=== PATIENT | male | born 2000 | race Caucasian/White ===

== ENCOUNTER 2023-01-13 17:42 | Emergency (ER) | payer MEDICAID, SELFPAY ==
[2023-01-13 17:52] VITALS: BP 130/91; PULSE 86; RESP 18; TEMP 36.7; O2SAT 97; BMI 44.6
[2023-01-13] MEDS: tetracaine 0.5% Op Soln 4 mL Btl 1 DROP EYE-RIGHT (20:50)
[2023-01-13] MEDS: fluorescein 1 mg Strip EYE-RIGHT (20:50)
[2023-01-13 22:41] VITALS: BP 130/91; PULSE 86; RESP 18; TEMP 36.7; O2SAT 97
--- NOTE | 2023-01-14 03:00 | W.ED.EYEPROB ---
HPI - Eye Problem General: Chief complaint: Eye Problems Stated complaint: hurt right eye Time Seen by Provider: 01/13/23 20:45 Source: patient Mode of arrival: ambulatory Limitations: no limitations History of Present Illness: Patient presents emergency department today accompanied by his mother for evaluation treatment of redness and irritation of the right eye. Patient denies any known trauma or injury but does indicate that he has issues with sleeping at night and may have accidentally rubbed his eye. He denies knowingly having gotten a foreign body in the eye. He denies upper respiratory symptoms such as significant nasal congestion, sore throat, headache, or cough. He denies photophobia. Patient wears corrective glasses but does not wear contacts. He denies any significant matting or draining from the eye. Review of Systems General: Reports: 10 or more systems reviewed and unremarkable except in HPI and below Physical Exam Const: COMMON NORMALS: no acute distress, patient oriented x3 and alert HENMT: COMMON NORMALS: normocephalic, hearing grossly normal bilaterally, EAC's normal, TM's normal bilaterally, Normal external nose present and Normal nasal mucous membranes and turbinates present HEAD & SCALP: normocephalic NOSE: Normal external nose present and Normal nasal mucous membranes and turbinates present EXTERNAL AUDITORY CANAL: EAC's normal TYMPANIC MEMBRANE: TM's normal bilaterally Eye: COMMON NORMALS: Equal, round and reactive pupils present and EOMs intact bilaterally PUPIL: Yes Equal, round and reactive pupils present OTHER: Patient has moderate injections to the right conjunctive a. No signs of significant matting to the lashes. Patient's lids were everted and no signs of any internal styes or hordeolum is appreciated. No signs of obvious foreign body. Patient received a fluorescein examination by Hawkins lamp which showed no signs of dye uptake indicating corneal abrasion. Neck/C-Spine: COMMON NORMALS: no JVD Lymph: LYMPHATIC: no lymphadenopathy noted Resp: COMMON NORMALS: normal respiratory effort, No retractions and No use of accessory muscles Cardio: COMMON NORMALS: no JVD and regular rate RATE: regular rate : COMMON NORMALS: Yes no CVA tenderness BLADDER/KIDNEY EXAM: Yes no CVA tenderness Back/Pelvis: COMMON NORMALS: no CVA tenderness, thoracic and lumbar spine normal to inspection and thoraco-lumbar ROM normal Extremity: COMMON NORMALS: normal to inspection, full ROM and no pedal edema Neuro: COMMON NORMALS: patient oriented x3 SENSORIUM/ORIENTATION: Yes alert Skin: COMMON NORMALS: no rashes or lesions noted and turgor normal GENERAL SKIN EXAM: no rashes or lesions noted and turgor normal Course Vital Signs: Vital signs: Vital Signs Temperature 98.1 F 01/13/23 22:41 Pulse Rate 86 01/13/23 22:41 Respiratory Rate 18 01/13/23 22:41 Blood Pressure 130/91 01/13/23 22:41 Pulse Oximetry 97 01/13/23 22:41 Oxygen Delivery Me thod Room Air 01/13/23 17:52 MDM - Eye Problem Medical Decision Making Examination today showed no signs of acute styes or hordeolum's. No obvious foreign bodies and no signs of stain uptake on Hawkins lamp exam. At this time, as I appreciate no signs of trauma, we will treat for infection with ciprofloxacin. Given the time of night I did request the medication be administered from the pharmacy however, after quite a delay, they indicated they were not able to provide it from the pharmacy this evening. Patient has a prescription provided which can be picked up and started in the morning. Encouraged warm compresses. He is to watch for photophobia, blurred or lost vision, severe headache on the right side or fevers. If these occur patient needs to be seen and reevaluated. Patient verbalizes understanding and agreement to treatment plan. No radiology studies performed this visit Discharge Plan Discharge Patient Disposition: Home Clinical Impression: Conjunctivitis Condition: Stable Prescriptions: New ciprofloxacin HCl 0.3 % drops See Rx Instructions ophthalmic (eye) .COMPLEX Qty: 5 0RF Rx Instructions: put 1-2 drps in affected eye(s) every 2hr up to 8 times/day x2days; then 4 times/day x5days Discharge Orders: Discharge ED (Routine); Ordered 01/13/23 Ordered By: Fidelina Askew Discharge Diet: Usual diet Discharge Activity: Increase activity as tolerated Patient Instructions: Infectious Conjunctivitis - Adult Activity Restrictions/Additional Instructions: Examination today revealed no obvious foreign bodies and no signs of any internal or external styes of the eye. The fluorescein stain did not show any signs of uptake concerning for a conjunctival or corneal abrasion at this time. Given your reported symptoms we will begin treatment with antibiotic eyedrops. You can still apply warm compresses to your eye to help with comfort. You may have increased tearing or irritation for another 24 to 48 hours while the medication works but, would like you to stay home and continue monitoring during that time before returning to work. I will provide you a work note. Carefully watch for any onset of sudden fever, severe headache on the right side, loss of vision, severe light sensitivity, or vomiting. If these agree need to be seen and reevaluated back here in the emergency department. 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
== END 2023-01-13 22:43 | disposition home or self-care (01) ==
PROVIDERS: Emergency Provider Physician Assistant
DX: H10.9 Unspecified conjunctivitis (principal)
CPT/HCPCS: 99283

== ENCOUNTER 2023-03-16 12:08 | Outpatient (CLI) | payer MEDICAID, SELFPAY ==
--- NOTE | 2023-03-16 12:17 | XR_ITS ---
WS: [id number] Exam: XR lumbar spine 2-3V* [id number] Date/Time of Exam: 03/16/2023 12:29 PM Reason For Exam: Low back pain, Uveitis No fracture or dislocation. Disc bases are well preserved. Posterior elements are intact. Increased l umbar lordosis. IMPRESSION: 1. Increased lumbar lordosis otherwise normal L spine study.
--- NOTE | 2023-03-16 12:17 | XR_ITS ---
WS: [id number] Exam: XR chest 2V* [id number] Date/Time of Exam: 03/16/2023 12:29 PM Reason For Exam: Chest pain, Uveitis, dyspnea No priors. Findings: The lungs are clear and fully expanded. Costophrenic angles are sharp. No infiltrates. Bronchovascula r relief appears normal. Cardiac silhouette is unremarkable. Bony elements are intact. IMPRESSION: Unremarkable chest radiograph.
--- NOTE | 2023-03-16 12:17 | XR_ITS ---
WS: [id number] Exam: XR thoracic spine 3V* [id number] Date/Time of Exam: 03/16/2023 12:29 PM Reason For Exam: Thoracic back pain, uveitis No acute fracture or dislocation. Disc bases are preserved. Very slight dextroscoliosis of the mid T- spine. Paraspinal soft tissues appear normal. IMPRESSION: 1. Slight scoliosis otherwise negative T-spine study.
== END 2023-03-16 12:09 | disposition home or self-care (01) ==
LOC: RAD 12:10
PROVIDERS: PCP Family Medicine; Visit Provider Family Medicine
DX: Z51.81 Encounter for therapeutic drug level monitoring (principal); R06.00 Dyspnea, unspecified; R07.9 Chest pain, unspecified; M40.56 Lordosis, unspecified, lumbar region; M41.9 Scoliosis, unspecified; H20.9 Unspecified iridocyclitis; M54.50 Low back pain, unspecified; M54.6 Pain in thoracic spine; R35.0 Frequency of micturition
CPT/HCPCS: 71046; 72072; 72100; 80053; 83036; 85025; 85651; 86038; 86141; 86431; 86592; 86812; 87806

== ENCOUNTER → 2024-03-17 14:23 | Outpatient (BNVA) | payer MEDICAID, SELFPAY | PROVIDERS: PCP Family Medicine; Visit Provider Specialist | DX: R20.0 Anesthesia of skin (principal); M25.532 Pain in left wrist | CPT/HCPCS: 73130 ==

== ENCOUNTER 2024-03-25 08:27 | Outpatient (CLI) | payer MEDICAID, SELFPAY ==
--- NOTE | 2024-03-25 08:45 | MR_ITS ---
WS: [id number] MRI LEFT WRIST WITHOUT CONTRAST. COMPARISON: LEFT hand 03/17/2024 Multiplanar, multisequence imaging is performed with contrast. Normal marrow signal. No fractures or edema. Carpal rows are normal. There is a small amount of fluid in the distal radial ulnar joint which can be seen with TFCC tears. There is a very subtle increased T2 signal extending along the proximal surface of the cartilage. This is a very subtle increased T2 signal. Scapholunate ligament is normal. Normal signal abnormality in the median nerve. No edema within the carpal tunnel. No displacement or bowing of the flexor retinaculum. Noted is negative ulnar variance. MR/MR wrist LT wo con* [id number] IMPRESSION: 1. No fractures or marrow signal abnormality. 2. Very small amount of fluid in the distal radial ulnar joint which can be se en with TFCC tears. There is a tiny amount of increased signal in the proximal TFCC. 3. Mild negative ulnar variance.
== END 2024-03-25 08:28 | disposition home or self-care (01) ==
LOC: RAD 08:27
PROVIDERS: PCP Family Medicine; Visit Provider Specialist
DX: M25.532 Pain in left wrist (principal); R93.6 Abnormal findings on diagnostic imaging of limbs
CPT/HCPCS: 73221